=== PATIENT | female | born 1980 | race Caucasian/White ===

== ENCOUNTER 2025-07-17 07:34 | Outpatient (CLI) | payer BC, MEDICAID, SELFPAY ==
--- NOTE | 2025-07-17 07:38 | US_ITS ---
WS: [id number] RIGHT UPPER QUADRANT ULTRASOUND HISTORY: ELEVATION OF ALT LEVELS COMPARISON: None available. Liver: 16.8 cm in length. No hepatomegaly. Severe hepatic steatosis. Limited evaluation of the deep liver due to attenuation. Loss of the normal portal triads. Portal Vein: Normal hepatopetal flow with monophasic waveform. Gallbladder: Prior cholecystectomy. CBD: 0.4 cm Pancreas: Completely obscured. Right kidney: 12.4 cm in length. Normal size and echogenicity. No hydronephrosis or mass. Aorta and IVC: Unremarkable abdominal aorta and IVC. No ascites. US/US abdomen limited 14029 IMPRESSION: 1. Technically limited RIGHT upper quadrant ultrasound due to body habitus. 2. Prior cholecystectomy. 3. Liver is normal size but there is severe hepatic steatosis.
== END 2025-07-17 07:35 | disposition home or self-care (01) ==
PROVIDERS: PCP Nurse Practitioner Occupational Health; Visit Provider Nurse Practitioner Occupational Health
DX: R74.01 Elevation of levels of liver transaminase levels (principal); K76.0 Fatty (change of) liver, not elsewhere classified; Z90.49 Acquired absence of other specified parts of digestive tract
CPT/HCPCS: 76705

== ENCOUNTER 2025-08-07 13:25 | Outpatient (CLI) | payer BC, MEDICAID, SELFPAY ==
--- NOTE | 2025-08-07 13:34 | XR_ITS ---
WS: [id number] DEXA (DUAL ENERGY X-RAY ABSORPTIOMETRY) Bone mineral density was performed using a [employer] machine. HISTORY: SCREENING FOR OSTEOPOROSIS COMPARISON: None available. Lumbar spine BMD (L1-L4): 1.244 g/cm2 T score: 0.5 Z score: -0.5 Total hip BMD: Left: 1.091 g/cm2. T score: 0.7 Z score: 0.2 Right: 1.108 g/cm2. T score: 0.8 Z score: 0.3 10 year probability of a major osteoporotic fracture is 3.9%. XR/XR DEXA axial skeleton* 95532 IMPRESSION: NORMAL BONE MINERAL DENSITY based upon the WHO classification for females.
== END 2025-08-07 13:26 | disposition home or self-care (01) ==
LOC: RAD 13:28
PROVIDERS: PCP Nurse Practitioner Occupational Health; Visit Provider Nurse Practitioner Occupational Health
DX: Z13.820 Encounter for screening for osteoporosis (principal)
CPT/HCPCS: 77080

== ENCOUNTER 2025-08-15 07:38 | Emergency (ER) | payer BC, MEDICAID, SELFPAY ==
[2025-08-15 08:15] VITALS: BP 143/92; PULSE 86; RESP 17; TEMP 36.7; O2SAT 100; BMI 50.6
[2025-08-15 08:36] LABS: Hematocrit 48.4 % (36-47); Hemoglobin 15.70 g/dL (11.27-16.99); Mean Corpuscular HGB Conc 32.4 g/dL (30-55); Mean Corpuscular Hemoglobin 30.7 pg (27-33); Mean Corpuscular Volume 94.5 fl (85-98); Nucleated Red Blood Cells % 0 %; Platelet Count 149 10^3/cmm (157-399); Red Blood Count 5.12 10^6/uL (3.85-5.65); White Blood Count 8.52 10^3/uL (3.29-11.43)
--- NOTE | 2025-08-15 08:39 | W.ED.NAVMDI ---
HPI - Nausea/Vomiting/Diarrhea General: Chief complaint: Nausea/Vomiting/Diarrhea Stated complaint: abd pain / Diarrhea Time Seen by Provider: 08/15/25 08:15 History of Present Illness: 45-year-old female presents emergency room complaining of generalized abdominal pain seems to be more periumbilical's umbilical she has had it for a month she has had diarrhea along with that she denies any hematochezia melena hematemesis or coffee-ground emesis she was seen by her primary care doctor and had stool studies done yesterday that have not resulted yet she has not been any antibiotics in the last month. She was given prescription antibiotic but she has not yet started she reports increasing abdominal pains when she denies dysuria urgency or frequency. She has had a poor appetite. No previous EGD or colonoscopy she has previously had a cholecystectomy x 2, tubal ligation, hysterectomy Associated nausea: Yes Associated symtoms: Reports nausea; Denies chest pain or dysuria Related Data Home Medications ?Medication ?Instructions ?Recorded ?Confirmed amoxicillin 875 mg-potassium 1 tab PO TID 08/15/25 08/15/25 clavulanate 125 mg tablet cholecalciferol (vitamin D3) 1,250 50,000 unit PO Q7D 08/15/25 08/15/25 mcg (50,000 unit) capsule duloxetine 30 mg capsule,delayed 60 mg PO DAILY 08/15/25 08/15/25 release lisinopril 5 mg tablet 5 mg PO DAILY 08/15/25 08/15/25 Previous Rx's ?Medication ?Instructions ?Recorded promethazine 25 mg tablet 25 mg PO Q6H PRN nausea and 08/15/25 vomiting #20 tabs Allergies Allergy/AdvReac Type Severity Reaction Status Date / Time naproxen Allergy ADR-Gastrointestinal Verified 08/15/25 08:20 Upset pregabalin (From Lyrica) Allergy ADR-Gastrointestinal Verified 08/15/25 08:20 Upset Review of Systems Const: Denies: fever(s) or chills Card: Denies: chest pain Resp: Denies: dyspnea GI: Reports: abdominal pain, nausea and diarrhea; Denies: vomiting, hematemesis, coffee ground emesis, hematochezia or melena : Denies: dysuria, urinary frequency or urinary urgency Musc: Denies: neck pain or back pain Skin/Breast: Denies: rash PFSH ED PFSH: Surgical History (Updated 08/15/25 @ 08:57 by Glen Victoria DO) Previous section X 2 Hx of tubal ligation Hx of cholecystectomy H/O: hysterectomy Social History (Updated 08/15/25 @ 08:57 by Glen Victoria DO) Smoking and tobacco/nicotine status: current every day tobacco/nicotine user Alcohol intake: never Physical Exam Const: GENERAL APPEARANCE: cooperative ORIENTATION/CONSCIOUSNESS: Yes awake, Yes oriented to person, Yes oriented to place and Yes oriented to time HENMT: COMMON NORMALS: normocephalic, atraumatic and hearing grossly normal bilaterally HEAD & SCALP: normocephalic and atraumatic Resp: COMMON NORMALS: normal respiratory effort, No retractions, No use of accessory muscles and clear to auscultation bilaterally AUSCULTATION: clear to auscultation bilaterally Cardio: COMMON NORMALS: regular rate, regular rhythm and No murmurs present (Cardio) RATE: regular rate RHYTHM: regular rhythm GI: COMMON NORMALS: No hepatosplenomegaly present AUSCULTATION: Yes normoactive bowel sounds PALPATION: Yes Tenderness to palpation present (GI) (Periumbilical), No Guarding due to palpation present (GI) and Yes No hepatosplenomegaly present Extremity: COMMON NORMALS: normal to inspection, capillary refill normal, no clubbing, cyanosis or edema, no calf tenderness and no pedal edema Neuro: SENSORIUM/ORIENTATION: Yes oriented to person, Yes oriented to place and Yes oriented to time Skin: COMMON NORMALS: no rashes or lesions noted GENERAL SKIN EXAM: no rashes or lesions noted Course Vital Signs: Vital signs: Vital Signs Temperature 98.1 F 08/15/25 08:15 Pulse Rate 69 08/15/25 10:45 Respiratory Rate 17 08/15/25 08:15 Blood Pressure 110/70 08/15/25 10:45 Pulse Oximetry 100 08/15/25 10:45 Oxygen Delivery Me thod Room Air 08/15/25 08:15 MDM - Nausea/Vomiting/Diarrhea Medical Decision Making No leukocytosis however CT does show extensive diverticulosis. Based on location of patient's pain and discomfort and her symptoms suspect she has low-grade diverticulitis especially given the length of time she has had symptoms. Will start her on oral antibiotics. I also gave her promethazine to use as needed. She should follow-up with her primary care doctor to pursue possible colonoscopy at some later date. Return if has uncontrolled pain worsening pain fever or bloody stools Medical Records I reviewed the patient's medical records. Lab Data I reviewed the patient's lab results. 08/15/25 08:30 08/15/25 08:30 Radiology Impressions Abdomen/Pelvis CT 08/15/25 08:51 IMPRESSION: 1. Extensive sigmoid diverticulosis with mild sigmoid thickening but no definite evidence of acute diverticulitis. Recommend correlation with clinical symptoms. 2. Normal appendix extending into the RIGHT upper quadrant. 3. No hydronephrosis. 4. Prior cholecystectomy and hysterectomy. 5. Fatty liver. Laboratory Results WBC 8.52 10^3/uL (3.29-11.43) 08/15/25 08:30 RBC 5.12 10^6/uL (3.85-5.65) 08/15/25 08:30 Hgb 15.70 g/dL (11.27-16.99) 08/15/25 08:30 Hct 48.4 % (36-47) H 08/15/25 08:30 MCV 94.5 fl (85-98) 08/15/25 08:30 MCH 30.7 pg (27-33) 08/15/25 08:30 MCHC 32.4 g/dL (30-55) 08/15/25 08:30 RDW 12.5 % (12.1-15.1) 08/15/25 08:30 Plt Count 149 10^3/cmm (157-399) L 08/15/25 08:30 MPV 11.8 fL (7.4-10.4) H 08/15/25 08:30 Neut % (Auto) 66.0 % 08/15/25 08:30 Lymph % (Auto) 25.1 % 08/15/25 08:30 [place] % (Auto) 7.2 % 08/15/25 08:30 Eos % (Auto) 1.3 % 08/15/25 08:30 Baso % (Auto) 0.2 % 08/15/25 08:30 Neut # (Auto) 5.62 10^3/uL (1.8-7.7) 08/15/25 08:30 Lymph # (Auto) 2.1 10^3/uL (0.8-4.8) 08/15/25 08:30 [place] # (Auto) 0.6 10^3/uL (0.2-0.9) 08/15/25 08:30 Eos # (Auto) 0.1 10^3/uL (0.0-0.8) 08/15/25 08:30 Baso # (Auto) 0.0 10^3/uL (0.0-0.1) 08/15/25 08:30 Nucleated RBC % (auto) 0 % 08/15/25 08:30 Nucleated RBCs # 0.0 /100WBC 08/15/25 08:30 Sodium 139 mmol/L (136-145) 08/15/25 08:30 Potassium 4.1 mmol/L (3.5-5.1) 08/15/25 08:30 Chloride 103 mmol/L (98-107) 08/15/25 08:30 Carbon Dioxide 21 mmol/L (22-29) L 08/15/25 08:30 Anion Gap 19.1 (5-19) H 08/15/25 08:30 BUN 7 mg/dL (6-20) 08/15/25 08:30 Creatinine 0.7 mg/dL (0.5-0.9) 08/15/25 08:30 GFR Calculation 90.1 mL/min (90-130) 08/15/25 08:30 Glucose 107 mg/dL (65-115) 08/15/25 08:30 Calculated Osmolality 286 mOsm/kg (285-295) 08/15/25 08:30 Calcium 9.6 mg/dL (8.5-10.5) 08/15/25 08:30 Total Bilirubin 0.4 mg/dL (0.15-1.2) 08/15/25 08:30 AST 23 U/L (0-32) 08/15/25 08:30 ALT 24 U/L (0-33) 08/15/25 08:30 Alkaline Phosphatase 106 U/L (35-105) H 08/15/25 08:30 Total Protein 7.0 g/dL (6.6-8.7) 08/15/25 08:30 Albumin 4.5 g/dL (3.5-5.2) 08/15/25 08:30 Globulin 2.5 g/dL (1.3-4.6) 08/15/25 08:30 Lipase 25 U/L (13-60) 08/15/25 08:30 Urine Color Yellow (Yellow) 08/15/25 10:15 Urine Appearance Clear (CLEAR) 08/15/25 10:15 Urine pH 5.5 (5-7) 08/15/25 10:15 Ur Specific [place] 1.011 (1.005-1.030) 08/15/25 10:15 Urine Protein Negative (Negative) 08/15/25 10:15 Urine Glucose (UA) Negative (Normal) 08/15/25 10:15 Urine Ketones Negative (Negative) 08/15/25 10:15 Urine Blood Negative (Negative) 08/15/25 10:15 Urine Nitrate Negative (Negative) 08/15/25 10:15 Urine Bilirubin Negative (Negative) 08/15/25 10:15 Urine Urobilinogen 0.2 mg/dL (Negative) 08/15/25 10:15 Ur Leukocyte Esterase Negative (Negative) 08/15/25 10:15 Urine RBC 0-2 /hpf (0-2) 08/15/25 10:15 Urine WBC 0-5 /hpf (0-5) 08/15/25 10:15 Ur Squamous Epith Cells 0-5 /hpf (0-5) 08/15/25 10:15 Amorphous Sediment Not Reportable 08/15/25 10:15 Urine Bacteria None seen /hpf (NONE) 08/15/25 10:15 Hyaline Casts 0.40 /lpf 08/15/25 10:15 All radiology interpretation(s) finalized by discharge Discharge Plan Discharge Patient Disposition: Home Clinical Impression: Diverticulitis Condition: Stable Prescriptions: New promethazine 25 mg tablet 25 mg PO Q6H PRN (Reason: nausea and vomiting) Qty: 20 0RF No Action lisinopril 5 mg tablet 5 mg PO DAILY amoxicillin-pot clavulanate 875-125 mg tablet 1 tab PO TID duloxetine 30 mg capsule,delayed release(DR/EC) 60 mg PO DAILY cholecalciferol (vitamin D3) 1,250 mcg (50,000 unit) capsule 50,000 unit PO Q7D Discharge Orders: Discharge ED (Routine); Ordered 08/15/25 Ordered By: Glen Victoria Referrals: Ata Gordon, MAYUR [Primary Care Provider] Discharge Diet: Clear Liquid Discharge Activity: Resume usual activity Patient Instructions: Diverticulitis (ED), Opioid Safety, Pain Management, Patient Portal & Alexander Instructions Activity Restrictions/Additional Instructions: Thank you for choosing [facility] for your healthcare needs today. It is very important that you follow up as instructed or that you return to the Emergency Department should you have concerns or if your condition changes or worsens in any way. Emergency department visits are focused on emergent conditions, in some cases you may require further evaluation on an outpatient basis. You are seen emergency room with complaints of abdominal discomfort you have diverticulitis based on the CT results discharge home and complete the antibiotics you are prescribed previously. Clear liquid diet for 2-3 days. (Please note that included in your discharge packet is information concerning opioid safety and pain management. This information is given to all patients were discharged from the ER regardless of their discharge diagnosis or the medicines they usually take or are prescribed.) Stand Alone Forms: Work/School Release Print Language: Estonian Coding Level of Care Code ED Book Solicitor for Daquan Ugalde
--- NOTE | 2025-08-15 08:51 | CT_ITS ---
WS: [id number] CT ABDOMEN PELVIS TECHNIQUE: Noncontrast CT of the abdomen and pelvis with coronal and sagittal reformatted images. CLINICAL INFORMATION: Abdominal pain COMPARISON: None. DLP: 1238.[address] scans at [facility] use at least one of these dose optimization techniques: automated exposure control; mA and/or kV adjustment per patient size (includes targeted exams where dose is matched to clinical indication); or iterative reconstruction. FINDINGS: Prior cholecystectomy. Hysterectomy. Fatty liver. Lung bases are well aerated. Small esophageal hiatal hernia. Noncontrast pancreas appears normal. Mild thickening LEFT adrenal gland. RIGHT adrenal gland is normal. Normal noncontrast spleen. No hydronephrosis in either kidney. Small increased attenuation RIGHT renal lesion likely proteinaceous or hemorrhagic cyst measuring 5 mm. Normal caliber abdominal aorta. Small fat-containing RIGHT periumbilical hernia. Extensive sigmoid diverticulosis with mild sigmoid thickening but no definite evidence of acute diverticulitis. Recommend correlation with clinical symptoms. CT/CT abdomen pelvis wo con [id number] IMPRESSION: 1. Extensive sigmoid diverticulosis with mild sigmoid thickening but no defini te evidence of acute diverticulitis. Recommend correlation with clinical sympto ms. 2. Normal appendix extending into the RIGHT upper quadrant. 3. No hydronephrosis. 4. Prior cholecystectomy and hysterectomy. 5. Fatty liver.
[2025-08-15 08:53] LABS: Alanine Aminotransferase 24 U/L (0-33); Albumin Level 4.5 g/dL (3.5-5.2); Alkaline Phosphatase 106 U/L (35-105); Anion Gap 19.1 (5-19); Aspartate Amino Transferase 23 U/L (0-32); Blood Urea Nitrogen 7 mg/dL (6-20); Calcium 9.6 mg/dL (8.5-10.5); Carbon Dioxide 21 mmol/L (22-29); Chloride 103 mmol/L (98-107); Creatinine Clr Calc Pharmacy 146.7230; Globulin 2.5 g/dL (1.3-4.6); Glucose 107 mg/dL (65-115); Osmolality Calculated 286 mOsm/kg (285-295); Potassium 4.1 mmol/L (3.5-5.1); Sodium 139 mmol/L (136-145); Total Protein 7.0 g/dL (6.6-8.7)
[2025-08-15 09:08] LABS: Lipase 25 U/L (13-60)
[2025-08-15 09:46] LABS: Slide Review Slide Review Perform
[2025-08-15 10:29] LABS: Glucose Urine UA Negative (Normal); Nitrate Urine Negative (Negative); Specific Gravity, Urine 1.011 (1.005-1.030)
[2025-08-15 10:34] LABS: Add Urine Microscopic? YES
[2025-08-15 10:45] VITALS: BP 110/70; PULSE 69; O2SAT 100
== END 2025-08-15 11:14 | disposition home or self-care (01) ==
PROVIDERS: Emergency Provider Family Medicine; PCP Nurse Practitioner Occupational Health
DX: K57.32 Diverticulitis of large intestine without perforation or abscess without bleeding (principal); Z72.0 Tobacco use
CPT/HCPCS: 36415; 74176; 80053; 81001; 83690; 85025; 99284